=== PATIENT | male | born 1955 | race Caucasian/White ===

== ENCOUNTER 2019-04-03 09:24 | Day surgery (SDC) | payer OTHER ==
[2019-04-03] MEDS ORDERED: PROPOFOL 40 ML (11:19)
[2019-04-03] MEDS ORDERED: LIDOCAINE 2% (SDV) 5 ML INJ (11:19)
== END 2019-04-03 13:54 | disposition home or self-care (01) ==
LOC: GIL 09:24
DX: K92.1 Melena (principal); D12.3 Benign neoplasm of transverse colon; K64.8 Other hemorrhoids; I10 Essential (primary) hypertension
CPT/HCPCS: 45385; 88305